=== PATIENT | female | born 1990 | race African-American/Black ===

== ENCOUNTER 2018-01-01 14:27 | Emergency (ER) | payer SELFPAY ==
[~2018-01-01] VITALS: Ht 167.6 cm; Wt 83.9 kg
[2018-01-01 16:25] VITALS: BP 120/71
== END 2018-01-01 18:05 | disposition home or self-care (01) ==
LOC: ER 14:32
DX: S16.1XXA Strain of muscle, fascia and tendon at neck level, initial encounter (principal); R51 Headache; V43.52XA Car driver injured in collision with other type car in traffic accident, initial encounter; Y93.89 Activity, other specified; Y99.8 Other external cause status; Y92.410 Unspecified street and highway as the place of occurrence of the external cause
CPT/HCPCS: 70450